=== PATIENT | female | born 1975 | race Caucasian/White ===

== ENCOUNTER → 2017-01-18 | Outpatient (CLI) | payer OTHER ==
[2014-09-17 10:31] VITALS: BP 114/69
[~2017-01-18] MED LIST: ALBU18HF IH; AZIT250T PO; FLUT1DIS3 INH; Guaifenesin/Dextromethorphan PO; METF10002 PO
--- NOTE | 2017-01-18 16:03 | RAD ---
Chest, 2 views, 01/18/2017: History: Productive cough, asthma Comparison is made to a study from 09/15/2014. The heart size and pulmonary vascularity are normal. No pulmonary infiltrates are seen. There is no evidence of pleural fluid. IMPRESSION: No acute cardiopulmonary abnormality is detected.
== END | disposition home or self-care (01) ==
LOC: DXRADRC 14:24
PROVIDERS: ATTEND Nurse Practitioner Family
DX: R05 Cough (principal); J45.909 Unspecified asthma, uncomplicated
CPT/HCPCS: 71020

== ENCOUNTER → 2017-07-27 | Outpatient (CLI) | payer BC ==
[2014-09-17 10:31] VITALS: BP 114/69
--- NOTE | 2017-07-27 10:01 | RAD ---
Chest, 2 views, 07/27/2017: History: Chest congestion Comparison is made to a study from 01/18/2017. The heart size and pulmonary vascularity are normal. No pulmonary infiltrate is seen. There is no evidence of pleural fluid. Mild scattered degenerative changes are present in the spine. A lap band type device is projected over the left upper quadrant of the abdomen. IMPRESSION: No acute cardiopulmonary abnormality is detected.
== END | disposition home or self-care (01) ==
LOC: PMG 09:10
PROVIDERS: ATTEND Physician Assistant Medical
DX: R09.89 Other specified symptoms and signs involving the circulatory and respiratory systems (principal); J44.1 Chronic obstructive pulmonary disease with (acute) exacerbation; E11.9 Type 2 diabetes mellitus without complications; E78.00 Pure hypercholesterolemia, unspecified
CPT/HCPCS: 71046

== ENCOUNTER → 2017-10-07 | Outpatient (CLI) | payer BC ==
[2014-09-17 10:31] VITALS: BP 114/69
[~2017-10-07] MED LIST changes: -METF10002 PO; +METF10003 PO
--- NOTE | 2017-10-07 13:59 | RAD ---
EXAM: Right knee, 2 views. HISTORY: Pain. COMPARISON: None. FINDINGS: Frontal and lateral views of the right knee are obtained. There is mild tricompartmental spurring. There is no fracture, dislocation or subluxation. There is no joint effusion. IMPRESSION: Mild tricompartmental osteoarthritis the right knee. Electronically signed by: Berna Arce MD (10/07/2017 1:56 PM) [id number]
== END | disposition home or self-care (01) ==
LOC: DXRAD 13:16
PROVIDERS: ATTEND Family Medicine
DX: M17.11 Unilateral primary osteoarthritis, right knee (principal)
CPT/HCPCS: 73560

== ENCOUNTER → 2020-08-09 | Outpatient (CLI) | payer BC ==
[2014-09-17 10:31] VITALS: BP 114/69
[~2020-08-09] MED LIST changes: -ALBU18HF IH; +ALBU2.5V8 IH; +AMOX1TAB61 PO; -METF10003 PO; +METF10007 PO
--- NOTE | 2020-08-09 11:19 | RAD ---
Study: XR CHEST 2V Indication: Fever. Comparison: 07/27/2017 Findings: Hazy increased attenuation and increased lung markings in a perihilar to subpleural distribution bila terally with sparing of the apices. The cardiomediastinal silhouette is unchanged in size from the 20 18 comparison. Relatively symmetric diya. No pleural effusion or pneumothorax. Impression: Increased interstitial markings, hazy attenuation and peribronchial cuffing in a perihilar and subple ural distribution at the lower two thirds of both lungs. The findings could relate to interstitial/al veolar edema though an infectious etiology, such as a viral pneumonia, could appear similar. Recommen d correlation with patient's symptoms. Electronically signed by: DIANN GREEN MD (08/09/2020 11:17 AM) [id number]
== END ==
LOC: DXRAD 10:42
PROVIDERS: ATTEND Nurse Practitioner Family
DX: R06.02 Shortness of breath (principal); R50.9 Fever, unspecified
CPT/HCPCS: 71046

== ENCOUNTER 2020-08-10 22:44 | Inpatient (IN) | payer BC ==
[~2020-08-10] VITALS: Ht 157.5 cm; Wt 157.6 kg
[~2020-08-10 22:44] MED LIST changes: -AMOX1TAB61 PO
[2020-08-10] MEDS ORDERED: IPRATRPIUM/ALBUTEROL 0.5/2.5MG 3 ML NEBU. NEB ONE (23:30)
[2020-08-10] MEDS ORDERED: IBUPROFEN 600 MG TABLET. PO ONE (23:30)
[2020-08-10 23:45] LABS: BASO # 0.1 x10^3/uL (0.0-0.2); BASO % 1 % (0-3); EOS % 0 % (0-3); HEMATOCRIT 40.3 % (36.0-47.0); LYMPH # 1.9 x10^3/uL (1.0-4.8); LYMPH % 24 % (24-48); MEAN CORPUSCULAR HEMOGLOBIN 26 pg (25-35); MEAN CORPUSCULAR HGB CONC 32 g/dL (31-37); MEAN CORPUSCULAR VOLUME 79 fL (79-100); MONO # 0.5 x10^3/uL (0.0-1.1); MONO % 6 % (0-9); NEUT # 5.7 x10^3uL (1.8-7.7); NEUT % 70 % (31-73); PLATELET COUNT 227 x10^3/uL (140-400); RED BLOOD COUNT 5.11 x10^6/uL (3.50-5.40); RED CELL DISTRIBUTION WIDTH 15.3 % (11.5-14.5); WHITE BLOOD COUNT 8.2 x10^3/uL (4.0-11.0)
[2020-08-10 23:55] LABS: CALCIUM 8.6 mg/dL (8.5-10.1); CREATININE 0.7 mg/dL (0.6-1.0); GFR 91.3
--- NOTE | 2020-08-11 00:07 | PHYS DOC ---
Past History Past Medical History: Asthma, Bronchitis, Cancer, Diabetes, Hypothyroid, Pneumonia, Other Additional Past Medical Histor: sleep apnea Past Surgical History: Hysterectomy, Oophorectomy Alcohol Use: None Drug Use: None Adult General Chief Complaint Chief Complaint: SHORTNESS OF BREATH [facility] HPI Patient is a 45-year-old female with a past medical history significant for asthma who presents with a chief complaint of shortness of breath. States this is been going on over the past week and saw her the urgent care yesterday for a Covid test which should result on Tuesday. States she was diagnosed with an upper respiratory infection. States that over the last day she has had increa sed shortness of breath, despite using her asthma medications at home. States she has had intermittent fevers at home to 101. Review of Systems Review of Systems Constitutional: Denies fever or chills [] Eyes: Denies change in visual acuity, redness, or eye pain [] HENT: Denies nasal congestion or sore throat [] Respiratory: Denies cough or shortness of breath [] Cardiovascular: No additional information not addressed in HPI [] GI: Denies abdominal pain, nausea, vomiting, bloody stools or diarrhea [] : Denies dysuria or hematuria [] Musculoskeletal: Denies back pain or joint pain [] Integument: Denies rash or skin lesions [] Neurologic: Denies headache, focal weakness or sensory changes [] Endocrine: Denies polyuria or polydipsia [] All other systems were reviewed and found to be within normal limits, except as documented in this note. Current Medications Current Medications Current Medications Medications (Trade) Dose Ordered Sig/[facility] Start Time Stop Time Status Last Admin Dose Admin Albuterol/ Ipratropium (Duoneb) 3 ml 1X ONCE 08/10/20 23:30 08/10/20 23:31 DC 08/10/20 23:40 3 ML Ibuprofen (Motrin) 600 mg 1X ONCE 08/10/20 23:30 08/10/20 23:31 DC 08/10/20 23:18 600 MG Allergies Allergies Allergies Coded Allergies Type Severity Reaction Last Updated Verified No Known Drug Allergies 03/31/14 No Physical Exam Physical Exam Constitutional: Well developed, well nourished, no acute distress, non-toxic appearance. [] HENT: Normocephalic, atraumatic, bilateral external ears normal, oropharynx moist, no oral exudates, nose normal. [] Eyes: PERRLA, EOMI, conjunctiva normal, no discharge. [] Neck: Normal range of motion, no tenderness, supple, no stridor. [] Cardiovascular:Heart rate regular rhythm, no murmur [] Lungs & Thorax: Bilateral breath sounds clear to auscultation [] Abdomen: Bowel sounds normal, soft, no tenderness, no masses, no pulsatile masses. [] Skin: Warm, dry, no erythema, no rash. [] Back: No tenderness, no CVA tenderness. [] Extremities: No tenderness, no cyanosis, no clubbing, ROM intact, no edema. [] Neurologic: Alert and oriented X 3, normal motor function, normal sensory func tion, no focal deficits noted. [] Psychologic: Affect normal, judgement normal, mood normal. [] Current Patient Data Vital Signs Vital Signs Date Time Temp Pulse Resp B/P (MAP) Pulse Ox O2 Delivery O2 Flow Rate FiO2 08/10/20 23:42 95 Nasal Cannula 2.0 08/10/20 22:44 100.8 115 28 121/71 (88) Lab Results Laboratory Tests Test 08/10/20 23:30 White Blood Count 8.2 x10^3/uL (4.0-11.0) Red Blood Count 5.11 x10^6/uL (3.50-5.40) Hemoglobin 13.0 g/dL (12.0-15.5) Hematocrit 40.3 % (36.0-47.0) Mean Corpuscular Volume 79 fL (79-100) Mean Corpuscular Hemoglobin 26 pg (25-35) Mean Corpuscular Hemoglobin Concent 32 g/dL (31-37) Red Cell Distribution Width 15.3 % (11.5-14.5) H Platelet Count 227 x10^3/uL (140-400) Neutrophils (%) (Auto) 70 % (31-73) Lymphocytes (%) (Auto) 24 % (24-48) Monocytes (%) (Auto) 6 % (0-9) Eosinophils (%) (Auto) 0 % (0-3) Basophils (%) (Auto) 1 % (0-3) Neutrophils # (Auto) 5.7 x10^3uL (1.8-7.7) Lymphocytes # (Auto) 1.9 x10^3/uL (1.0-4.8) Monocytes # (Auto) 0.5 x10^3/uL (0.0-1.1) Eosinophils # (Auto) 0.0 x10^3/uL (0.0-0.7) Basophils # (Auto) 0.1 x10^3/uL (0.0-0.2) EKG EKG Rate of 106, QRS of 76, QTC of 419, no STEMI [] Radiology/Procedures Radiology/Procedures [] XR CHEST 1V Clinical Indication: Reason: SOB, COUGH / Spl. Instructions: / History: Comparison: Two-view chest August 09, 2020. Findings: The cardiomediastinal silhouette is stable. There is pulmonary vascular congestion. Bilateral perihilar and bibasilar airspace opacities are unchanged. There is no pneumothorax. No pleural effusion is appreciated. No acute bone abnormality. IMPRESSION: 1. Bilateral perihilar and bibasilar airspace opacities are unchanged. 2. Pulmonary vascular congestion. Electronically signed by: Markus Schwarz MD (08/11/2020 12:54 AM) [facility] Heart Score C/O Chest Pain: No Risk Factors: Risk Factors: DM, Current or recent (<one month) smoker, HTN, HLP, family history of CAD, obesity. Risk Scores: Risk Factors: DM, Current or recent (<one month) smoker, HTN, HLP, family history of CAD, obesity. Course & Med Decision Making Course & Med Decision Making Patient is a 45-year-old female presents with several days of shortness of breath Vital signs notable for tachycardia, hypoxia on room air, tachypnea, fever 100.8 placed on 2 L nasal cannula to saturate to 93%. Placed on monitor. IV access established. Chest x-ray notable for bilateral opacities. EKG with no STEMI. Troponin normal. D-dimer normal. Blood cultures obtained. Started on steroids. Started on Levaquin. Discussed findings with patient and advised admission to the hospital for continued evaluation and treatment of her pneumonia. Family grateful, verbalized understanding and agreed with plan of admission. [] Dragon Disclaimer Dragon Disclaimer This electronic medical record was generated, in whole or in part, using a voice recognition dictation system. Departure Departure: Impression: Primary Impression: Pneumonia Additional Impressions: Hypoxia Sepsis Disposition: 09 ADMITTED INPT THIS HOSP Admitting Physician: Priya Lucero Condition: IMPROVED Referrals: HE MTZ MD (PCP) Problem Qualifiers VIVIAN CASTRO MD Aug 11, 2020 00:07
[2020-08-11 00:13] LABS: ALBUMIN 3.2 g/dL (3.4-5.0); ALBUMIN/GLOBULIN RATIO 0.7 (1.0-1.7); TOTAL BILIRUBIN 0.3 mg/dL (0.2-1.0); TOTAL PROTEIN 7.9 g/dL (6.4-8.2)
[2020-08-11 00:16] LABS: POTASSIUM 4.8 mmol/L (3.5-5.1)
--- NOTE | 2020-08-11 00:31 | EKG ---
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
--- NOTE | 2020-08-11 00:57 | RAD ---
XR CHEST 1V Clinical Indication: Reason: SOB, COUGH / Spl. Instructions: / History: Comparison: Two-view chest August 09, 2020. Findings: The cardiomediastinal silhouette is stable. There is pulmonary vascular congestion. Bilateral perihil ar and bibasilar airspace opacities are unchanged. There is no pneumothorax. No pleural effusion is a ppreciated. No acute bone abnormality. IMPRESSION: 1. Bilateral perihilar and bibasilar airspace opacities are unchanged. 2. Pulmonary vascular congestion. Electronically signed by: Markus Schwarz MD (08/11/2020 12:54 AM) [facility]
[2020-08-11] MEDS ORDERED: DEXAMETHASONE 4 MG TABLET PO ONE (01:00)
--- NOTE | 2020-08-11 01:15 | NUR ---
The patient, ABDI YIN, 45 y/o, F admitted by DOLORES RIZVI MD, was given written information regarding hospital policies, unit procedures and contact persons. Valuables were checked and vitals obtained. Pt is short of air at rest on 2L NC sating at 94% with HOB elevated. Pt is A&OX4 able to answer all questions with no current complaints. Currently pt is sleeping in bed. Will continue to monitor.
[2020-08-11 02:29] VITALS: BP 100/66
[2020-08-11] MEDS ORDERED: AMOX1TAB61 PO (04:02)
[2020-08-11 05:40] VITALS: BP 117/72
[2020-08-11 10:55] VITALS: BP 117/76
[2020-08-11] MEDS ORDERED: ALBUTEROL SULFATE 8GM INHALER. INH PRN (12:00)
[2020-08-11] MEDS ORDERED: IPRATRPIUM/ALBUTEROL 0.5/2.5MG 3 ML NEBU. NEB SCH (12:00)
[2020-08-11] MEDS ORDERED: IPRATROPIUM/ALBUTEROL 20/100mcg/INH INHALER. INH SCH (12:00)
[2020-08-11] MEDS: DEXAMETHASONE SOD PHOS 10 MG/ML VIAL. IVP SCH (12:10)
--- NOTE | 2020-08-11 14:16 | HP ---
ADMIT DATE: 08/11/2020 HISTORY OF PRESENT ILLNESS: The patient is a 45-year-old female patient who came to the Emergency Room complaining of shortness of breath. She stated that it has been going on over the past week and she was seen at urgent care on Tuesday for a COVID test, which has not resulted yet. She stated she was diagnosed with an upper respiratory tract infection and was given treatment for bilateral ear infection; however, she continued to have fever, cough, shortness of breath and therefore, she came to the Emergency Room where she was extensively investigated. She has had lab work, with a white cell count that was normal. Her chemistry was mostly unremarkable except for slightly elevated liver enzymes. Her D-dimer was 0.42. Has had a chest x-ray, which basically shows cardiomediastinal silhouette is stable. There is pulmonary vascular congestion, bilateral perihilar and bibasilar airspace opacities are unchanged. There is no pneumothorax, no pleural effusion is appreciated, no acute bony abnormalities. The patient was admitted with a diagnosis of acute hypoxic respiratory failure, questionable community-acquired pneumonia versus COVID-19 pneumonia. She was treated with IV Levaquin, dexamethasone and nebulized albuterol and Atrovent, was admitted for further evaluation and treatment. PAST MEDICAL HISTORY: Significant for bronchial asthma. She also has obstructive sleep apnea, on BiPAP. She stated that at one point in time she had problem with her thyroid gland, but that has resolved. She has a history of endometrial cancer for which she underwent total abdominal hysterectomy, bilateral salpingo-oophorectomy. PAST SURGICAL HISTORY: 1. Significant for total abdominal hysterectomy, bilateral salpingo-oophorectomy. 2. 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 ALLERGIES: She has no known drug allergies. MEDICATIONS: She is currently on following medications: She is now on Advair Diskus 250/50 one puff twice a day. She is on albuterol sulfate, Ventolin inhaler 2 puffs every 4-6 hours. She is on Mucinex/Dextromethorphan 1 tablet twice a day. She was on Augmentin as well as Zithromax. FAMILY HISTORY: She has 5 brothers and 4 sisters, 3 brothers and 2 sisters are older and the rest are younger, all seemingly healthy. Her father at the age of 63 because of myocardial infarction. Mother is still alive at age of 68 and apparently healthy. SOCIAL HISTORY: She is , has no children. She quit smoking 20 years ago. She does not drink alcohol or use any recreational drugs. 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 PHYSICAL EXAMINATION: GENERAL: On arrival to the Emergency Room, the patient looked well and was clearly in no apparent respiratory distress. No pallor, jaundice, cyanosis or thyromegaly. No jugular venous distension. No limb edema. VITAL SIGNS: Her heart rate was 101, blood pressure was 132/76, temperature was 100.4, respiratory rate was 18 and oxygen saturation was 95% on 2 liters of oxygen. HEAD, EYES, EARS, NOSE AND THROAT: Showed normocephalic, atraumatic. NECK: Supple. HEART: Normal first and second heart sounds. No gallop, rub or murmur. CHEST: Clear to auscultation. No crepitation or rhonchi. ABDOMEN: Distended, soft, nontender. There is no guarding or rigidity. No organomegaly. All hernial orifice intact. Bowel sounds normal. NEUROLOGIC: She is awake, alert, responding appropriately. All cranial nerves intact. She moves extremities without difficulty. PSYCHOLOGICAL: Her affect, judgment and mood were normal. EXTREMITIES: Showed no clubbing, cyanosis or edema. LABORATORY DATA: While in the Emergency Room, she has had lab work done, which showed a white cell count of 8200, hemoglobin 13, hematocrit 40, MCV 79 and platelet count 227,000. Her chemistry showed a serum sodium 139, potassium 4.8, chloride 105, bicarbonate 26, anion gap of 8, BUN 14, creatinine 0.7, estimated GFR was 91 mL per minute. Her glucose was 125, calcium was 8.6. Total bilirubin and alkaline phosphatase normal. AST, ALT slightly elevated. Total protein was 7.9, albumin was 3.2. Her D-dimer was only 0.42. Her chest x-ray showed the cardiomediastinal silhouette is stable. There is pulmonary vascular congestion, bilateral perihilar and bibasilar airspace opacities are unchanged. There is no pneumothorax, no pleural effusion is appreciated, no acute bony abnormalities. The patient was admitted with acute hypoxic respiratory failure, questionable community-acquired pneumonia versus COVID-19 pneumonia. Other medical problems include bronchial asthma, morbid obesity, obstructive sleep apnea, on BiPAP. PLAN: To continue with IV levofloxacin. Continue with DVT prophylaxis. Continue with albuterol and Atrovent by an inhaler. Continue with dexamethasone. We will repeat all her lab works again tomorrow and decide further management accordingly. DOLORES RIZVI MD DR: MARCO/adam JOB#: [id number] / [id number]
[2020-08-11 14:55] VITALS: BP 120/81
--- NOTE | 2020-08-11 16:47 | NUR ---
NURSING NOTE THIS NURSE TOOK OVER PT CARE, REPORT FROM STEVEN LOERA. EVARISTO SHEPARD.
[2020-08-11] MEDS: IPRATROPIUM/ALBUTEROL 20/100mcg/INH INHALER. INH SCH ×2 (17:36→20:00)
--- NOTE | 2020-08-11 18:04 | NUR ---
Shift Summary This nurse took over patient care after 1600. Patient has had uneventful shift. Patient continues on 3L of oxygen and breathing treatments. Incentive spirometer in room and to use as directed per this nurse. Patient is up ad jamila in room and does well. No prn/pain medications administered during shift. Addendum: 08/11/20 at 1814 by MADDISON BROTHERS RN Pt COVID results pending from Urgent Care taken 08/09/20 per pt report.
[2020-08-11 18:24] VITALS: BP 109/64
[2020-08-11] MEDS: ENOXAPARIN ** NOTE DOSE ** SYRINGE SQ SCH (20:32)
[2020-08-11] MEDS: LACTOBACILLUS RHAMNOSUS GG 1 CAPSULE. PO SCH (20:32)
[2020-08-11] MEDS ORDERED: NON FORMULARY ITEM (Fluticasone/Salmeterol (Advair 250-50 Diskus) 1 PUFF) INH SCH (21:00)
[2020-08-11 23:02] VITALS: BP 124/82
[2020-08-12 05:20] VITALS: BP 108/66
[2020-08-12 05:32] LABS: HEMATOCRIT 40.4 % (36.0-47.0); HEMOGLOBIN 12.9 g/dL (12.0-15.5); RED BLOOD COUNT 5.1 x10^6/uL (3.50-5.40); RED CELL DISTRIBUTION WIDTH 14.9 % (11.5-14.5); WHITE BLOOD COUNT 7.3 x10^3/uL (4.0-11.0)
[2020-08-12 05:48] LABS: ALBUMIN 3.2 g/dL (3.4-5.0); ALBUMIN/GLOBULIN RATIO 0.7 (1.0-1.7); CALCIUM 8.9 mg/dL (8.5-10.1); CREATININE 0.6 mg/dL (0.6-1.0); GFR 109.1; POTASSIUM 4.3 mmol/L (3.5-5.1); TOTAL BILIRUBIN 0.2 mg/dL (0.2-1.0); TOTAL PROTEIN 8.1 g/dL (6.4-8.2)
[2020-08-12] MEDS: DEXAMETHASONE SOD PHOS 10 MG/ML VIAL. IVP SCH (08:48)
[2020-08-12] MEDS: ENOXAPARIN ** NOTE DOSE ** SYRINGE SQ SCH ×2 (08:48→21:38)
[2020-08-12] MEDS: IPRATROPIUM/ALBUTEROL 20/100mcg/INH INHALER. INH SCH ×4 (08:48→19:57)
[2020-08-12] MEDS: LACTOBACILLUS RHAMNOSUS GG 1 CAPSULE. PO SCH ×2 (08:48→21:37)
[2020-08-12] MEDS: ALBUTEROL SULFATE 2.5 MG/3 ML NEBU. NEB PRN ×4 (08:49→21:38)
[2020-08-12] MEDS ORDERED: ACETAMINOPHEN 325 MG TABLET PO ONE (09:15)
[2020-08-12 11:13] VITALS: BP 115/70
[2020-08-12] MEDS: ACETAMINOPHEN 325 MG TABLET PO PRN ×2 (11:15→19:57)
[2020-08-12] MEDS ORDERED: KETOROLAC 30 MG/ML VIAL. IVP ONE (12:15)
[2020-08-12 14:59] VITALS: BP_SYST 107; BP_SYST 120; BP_DIAS 65; BP_DIAS 83
--- NOTE | 2020-08-12 16:59 | NUR ---
Shift Summary Patient had an uneventful shift. Oxygen increased from 2 to 4 liters. Patient received nebulizer tx x2, Tylenol for 100.5 fever and Toradol for tension headache. Chest continues to feel tight/congested but has improved throughout shift. Patient received bath today. COVID test is still pending.
[2020-08-12 20:08] VITALS: BP 114/69
--- NOTE | 2020-08-12 20:09 | NUR ---
PT SITTING UP IN BED WHEN APPROACHED FOR ASSESSMENT. PT HAD COMPLAINTS OF HEADACHE DURING ASSESSMENT. 650MG OF TYLENOL GIVEN INDICATED. PT EDUCATED ON INHALER USE. PT REFUSED INHALER AND DECIDED SHE WOULD LIKE A BREATHING TREATMENT INSTEAD. CALL LIGHT IN REACH, WILL CONTINUE TO MONITOR.
--- NOTE | 2020-08-13 00:19 | PN ---
DATE: 08/12/2020 SUBJECTIVE: The patient is resting, slightly propped up in bed, continues to have spiked her temperature this morning up to 100.5. Continued to have chest tightness, chest pain and shortness of breath and wheezing. PHYSICAL EXAMINATION: GENERAL: When I examined her this morning, she looked pale; no jaundice, cyanosis or thyromegaly. No jugular venous distension. No limb edema. VITAL SIGNS: Her heart rate was 112, blood pressure was 115/70, temperature 100.5, respiratory rate 20, and oxygen saturation was only 89% on 2 liters. I increased it to 4 liters and she was doing up to 91%-92%. HEENT: Normocephalic, atraumatic. NECK: Supple. HEART: Showed normal first and second heart sounds. No gallop, rub or murmur. CHEST: Shows central trachea, equal bilateral chest expansion, air entry, vesicular sounds. I could not really appreciate any crepitation or rhonchi. ABDOMEN: Distended, soft, nontender. NEUROLOGIC: She was grossly intact. Her intake was 416, output was ____ recorded. LABORATORY DATA: This morning showed a white cell count 7300, hemoglobin 13, hematocrit 40, MCV is 79 and platelet count 261,000. Serum sodium 140, potassium 4.3, chloride 103, bicarbonate 28, anion gap of 9, BUN 17, creatinine 0.6, estimated GFR was 109 mL per minute. Her glucose 128, calcium was 8.9. Total bilirubin and alkaline phosphatase were normal. AST, ALT slightly elevated. Troponin was less than 0.017. Total protein 8.1, albumin was 3.2. ASSESSMENT: 1. Acute hypoxic respiratory failure. 2. Questionable community-acquired pneumonia versus COVID-19 pneumonia. 3. Other medical problems include: A. Bronchial asthma. B. Morbid obesity. C. Obstructive sleep apnea, normally on BiPAP machine. PLAN: To continue with IV levofloxacin. Continue with steroids. Continue with inhalers. Continue with dexamethasone. She was tested for coronavirus at the urgent care, the result of her test still pending at the time of this dictation. She also complained of headache for which she was given Toradol intravenously. DOLORES RIZVI MD DR: MARCO/adam JOB#: [id number] / [id number]
[2020-08-13] MEDS: ACETAMINOPHEN 325 MG TABLET PO PRN (02:11)
[2020-08-13 05:15] LABS: BASO % 0 % (0-3); EOS % 0 % (0-3); HEMATOCRIT 37.9 % (36.0-47.0); HEMOGLOBIN 11.9 g/dL (12.0-15.5); LYMPH # 1.7 x10^3/uL (1.0-4.8); LYMPH % 23 % (24-48); MEAN CORPUSCULAR HEMOGLOBIN 25 pg (25-35); MEAN CORPUSCULAR HGB CONC 32 g/dL (31-37); MEAN CORPUSCULAR VOLUME 79 fL (79-100); MONO # 0.4 x10^3/uL (0.0-1.1); MONO % 6 % (0-9); NEUT # 5.5 x10^3uL (1.8-7.7); NEUT % 72 % (31-73); PLATELET COUNT 236 x10^3/uL (140-400); RED BLOOD COUNT 4.81 x10^6/uL (3.50-5.40); RED CELL DISTRIBUTION WIDTH 15.2 % (11.5-14.5); WHITE BLOOD COUNT 7.6 x10^3/uL (4.0-11.0)
[2020-08-13 05:21] LABS: CALCIUM 8.5 mg/dL (8.5-10.1); CREATININE 0.6 mg/dL (0.6-1.0); GFR 109.1; POTASSIUM 4.3 mmol/L (3.5-5.1)
--- NOTE | 2020-08-13 07:45 | NUR ---
IP note: Pt admitted to 08/11, and told staff that she had a COVID test run Tuesday, 08/09 @ Urgent Care. Urgent Care contacted 08/11, 08/12 and 08/13; per Marisol , results have not yet been received from [facility]. Staff at Urgent Care are requesting a status from [facility] at this time, and will provide results or an update on status when available. Addendum: 08/13/20 at 0934 by KELLI PAUL RN [facility] states that the COVID-19 testing specimen was received unlabeled, and so was unable to be processed. Pt remains in PUI status, EVARISTO estrella. Dr. Blanton agrees with plan to obtain COVID testing as inpatient, order entered.
[2020-08-13] MEDS: IPRATROPIUM/ALBUTEROL 20/100mcg/INH INHALER. INH SCH ×2 (08:00→10:19)
[2020-08-13] MEDS: ENOXAPARIN ** NOTE DOSE ** SYRINGE SQ SCH (08:34)
[2020-08-13] MEDS: LACTOBACILLUS RHAMNOSUS GG 1 CAPSULE. PO SCH (08:34)
[2020-08-13] MEDS: DEXAMETHASONE SOD PHOS 10 MG/ML VIAL. IVP SCH (08:35)
[2020-08-13 09:28] VITALS: BP 137/89
[2020-08-13] MEDS ORDERED: guaiFENesin DM 600/30MG 1 TAB TAB.ER.12H PO SCH (10:15)
[2020-08-13] MEDS: ALBUTEROL SULFATE 2.5 MG/3 ML NEBU. NEB PRN (10:19)
[2020-08-13 11:50] VITALS: BP 114/67
--- NOTE | 2020-08-13 13:33 | NUR ---
Discharged pt to [facility], report given to EVARISTO Gannon. EMS transported pt to [facility] RM [id number]. Pt a/ox4, vital signs stable spo2 93% on 5LNC. updated on transfer.
[2020-08-13] MEDS ORDERED: methylPREDNISolone SOD SUCC PF 40 MG/ML VIAL. IV SCH (14:00)
--- NOTE | 2020-08-13 14:19 | DS ---
DATE OF DISCHARGE: 08/13/2020 ATTENDING PHYSICIAN: Dr. Lucero and Dr. Figueredo. FINAL DISCHARGE DIAGNOSES: 1. Acute respiratory failure. 2. Hypoxemia, requiring supplemental oxygen. 3. Atypical bilateral pneumonia. 4. Fevers with cough. 5. Obesity. 6. History of asthma. HISTORY AND PHYSICAL: The patient is a 45-year-old female admitted from home with increasing shortness of breath. She had an atypical chest x-ray. She had a coronavirus swab done at urgent care. Unfortunately, the specimen got mislabeled and it was not processed. We swabbed her again on the third hospital day. She was admitted with atypical pneumonia. She had significant respiratory failure, requiring supplemental oxygen 4-5 liters to maintain a saturation of 90%. PHYSICAL EXAMINATION: Please see the dictated note. PERTINENT LABORATORY AND X-RAY STUDIES: Admission hemoglobin was 13.0 g/dL, white count 8200, repeated was 7600. Chemistry panel: Sodium 139 mEq, potassium 4.8 mEq per liter, nonfasting blood sugar 125, creatinine 0.7 mg percent, transaminases were normal and her troponin level was nonischemic. Chest x-ray on admission showed bilateral perihilar and bibasilar airspace opacities consistent with atypical pneumonia. COURSE IN THE HOSPITAL: The patient was admitted. She was started on supplemental oxygen, Decadron, Lovenox and empiric antibiotics. She had a nonproductive cough. She was still symptomatic. There was a strong anxiety component regarding her symptoms. On the third hospital day, I had seen her as the part of my duties to round on the patient. She was still tachycardic with rate of 110 per minute. She was febrile at 99.6 degrees Fahrenheit and her oxygen saturations were 86% on 4 liters by nasal cannula, earlier had been 91%. She was still symptomatic. I tried to explain to her the course of this infection. We were going to re-swab her because the coronavirus swab specimen was not processed. Her was concerned. They had discussions. Initially, he wanted her transferred to [facility]. I explained to her that would not be possible. They would not take a lateral transfer. However, I did get a hold of Dr. Lucero who was also attending staff at [facility]. He was agreeable to take her and therefore arrangements were made for the patient to transfer by ambulance to [facility] at the medical unit for continued care. At this time, her discharge meds are unchanged. She will continue her albuterol 4 times a day, Augmentin b.i.d., Zithromax 250 b.i.d., Advair Diskus, guaifenesin, Decadron and the Lovenox doses at [facility]. She still requires supplemental oxygen and we will be in the process of trying to wean her down. Currently, she requires 4 liters of supplemental oxygen by nasal cannula to maintain 90% saturation. The patient was then discharged from our hospital in stable condition to transfer to [facility] for further evaluation and care. Her prognosis is fair. She was discharged in a stable condition with explicit instructions and followup care. ROM FIGUEREDO MD DR: STEPHANIE/adam JOB#: [id number] / [id number] DOLORES Hinds MD
--- NOTE | 2020-08-13 20:47 | PN ---
DATE: 08/13/2020 ATTENDING PHYSICIAN: Priya Lucero MD SUBJECTIVE: Still dyspneic. She is requiring 4 liters of supplemental oxygen to maintain sats about 90%. She is very anxious. She is still short of breath at rest. OBJECTIVE FINDINGS: VITAL SIGNS: Temperature is 99.6 degrees Fahrenheit, pulse is 101 and regular, temperature as noted, blood pressure 137/89 mmHg, oxygen saturation 91% on 4 liters by nasal cannula. HEENT: Head is without trauma. Pupils are reactive. Sclerae nonicteric. Oropharynx is clear. NECK: Supple. LUNGS: Good breath sounds, but she still has shallow respirations. Minimal rhonchi at the bases. CARDIOVASCULAR: Showed regular heart tones. No gallops. ABDOMEN: Obese, protuberant. No organomegaly. Bowel sounds are hypoactive. EXTREMITIES: Without edema. NEUROLOGIC: Focally intact. Speech is fluent. SKIN: Warm and dry. LABORATORY DATA: Chest x-ray on admission was reviewed. ASSESSMENT: 1. A 45-year-old female with acute respiratory failure. 2. Atypical pneumonia, bibasilar. 3. Probable coronavirus infection. Her specimen was not processed properly. PLAN: 1. Increase steroid dosage. I have ordered Solu-Medrol. 2. Add guaifenesin. 3. Continue antibiotics. 4. We will try to wean down her supplemental oxygen requirements. 5. Hopefully, we can reassure her. She is very anxious about her condition. ROM FIGUEREDO MD DR: STEPHANIE/adam JOB#: [id number] / [id number] HE Jimenez MD
== END 2020-08-13 13:26 | disposition short-term general hospital (02) | DRG 871 ==
LOC: ER 22:44 → 1 SOUTH 08-11 01:23
PROVIDERS: ADMIT Internal Medicine; ATTEND Internal Medicine
DX: A41.89 Other specified sepsis (principal); U07.1 COVID-19; J96.01 Acute respiratory failure with hypoxia; J12.82 Pneumonia due to coronavirus disease 2019; Z68.44 Body mass index [BMI] 60.0-69.9, adult; E03.9 Hypothyroidism, unspecified; G47.33 Obstructive sleep apnea (adult) (pediatric); F41.9 Anxiety disorder, unspecified; R74.8 Abnormal levels of other serum enzymes; E66.01 Morbid (severe) obesity due to excess calories; E11.9 Type 2 diabetes mellitus without complications; J45.909 Unspecified asthma, uncomplicated; Z90.710 Acquired absence of both cervix and uterus; Z87.891 Personal history of nicotine dependence; Z90.722 Acquired absence of ovaries, bilateral; Z85.42 Personal history of malignant neoplasm of other parts of uterus; Z82.49 Family history of ischemic heart disease and other diseases of the circulatory system; Z87.01 Personal history of pneumonia (recurrent)
CPT/HCPCS: 36415; 71045; 80048; 80053; 82947; 84484; 85025; 85027; 85379; 87040; 87426; 93005; 94640; 96365; J1100; J1650; J1885; J1956; J8540; 99285-25; J7613